=== PATIENT | male | born 1995 | race African-American/Black ===

== ENCOUNTER 2020-08-27 18:07 | Emergency (ER) | payer OTHER ==
[~2020-08-27] VITALS: Ht 33 cm; Wt 0.5 kg
[2020-08-27 18:50] LABS: PLATELET COUNT 287 K/uL (142-355)
[2020-08-27 18:57] LABS: POTASSIUM 3.6 mmol/L (3.6-5.2)
[2020-08-27 19:06] LABS: PARTIAL THROMBOPLASTIN TIME 22.7 SECONDS (24.5-33.6)
[2020-08-27 23:50] VITALS: BP 157/117; TEMP 97.6
== END 2020-08-27 23:50 | disposition home or self-care (01) ==
LOC: ED 18:07
PROVIDERS: Family Medicine
DX: K27.9 Peptic ulcer, site unspecified, unspecified as acute or chronic, without hemorrhage or perforation (principal); R07.89 Other chest pain
CPT/HCPCS: 36415; 80053; 81000; 82550; 82553; 84484; 85027; 85610; 85730; 93005; 96374; 96375; 99284; J1885; J2405